=== PATIENT | female | born 1970 | race Caucasian/White ===

== ENCOUNTER 2022-11-19 14:27 | Emergency (ER) | payer SELFPAY ==
[~2022-11-19] VITALS: Ht 157.5 cm; Wt 55.0 kg
[2022-11-19] MEDS ORDERED: IBUPROFEN 600MG TABLET PO ONE (19:00)
[2022-11-19] MEDS ORDERED: TETANUS, DIPHTHERIA, PERTUSSIS VAC/PF 0.5ML (>10YR OLD) IM ONE (19:15)
[2022-11-19] MEDS ORDERED: IBUP-2029 MT (20:29)
[2022-11-19] MEDS ORDERED: IBUPROFEN 600MG TABLET PO NR (23:45)
[2022-11-20 00:27] VITALS: BP 113/68
== END 2022-11-20 00:28 | disposition home or self-care (01) ==
LOC: EDBD 14:27 → ER 14:27
DX: S50.811A Abrasion of right forearm, initial encounter (principal); Y08.89XA Assault by other specified means, initial encounter; Y93.89 Activity, other specified; Y92.89 Other specified places as the place of occurrence of the external cause; Y99.8 Other external cause status
CPT/HCPCS: 73090; 99284